=== PATIENT | female | born 1960 | race Two or more races ===

== ENCOUNTER 2021-08-17 23:48 | Emergency (ER) | payer OTHER ==
[~2021-08-17] VITALS: Ht 170.2 cm; Wt 77.6 kg
[2021-08-18] MEDS ORDERED: HYDROMORPHONE 1 MG/1 ML DISP.SYRIN ONE (00:19)
[2021-08-18] MEDS ORDERED: HYDROMORPHONE 1 MG/1 ML DISP.SYRIN IM ONE (00:30)
--- NOTE | 2021-08-18 01:24 | NUR ---
PT RETURNED TO ER BED [address] VIA ANA LILIA
--- NOTE | 2021-08-18 02:15 | NUR ---
L HAND #20G S/L; PATENT AND INTACT.
--- NOTE | 2021-08-18 02:32 | NUR ---
TOY STUFFER AT PT'S BEDSIDE
--- NOTE | 2021-08-18 02:42 | NUR ---
COVID SWAB DONE
[2021-08-18 02:45] LABS: BASOPHILS # (AUTO) 0.1 K/uL (0.0-0.2); BASOPHILS % (AUTO) 0.6 % (0.0-2.0); EOSINOPHILS % (AUTO) 1.8 % (0.0-6.0); HEMATOCRIT 42 % (33-45); HEMOGLOBIN 13.6 g/dL (11.5-14.8); LYMPHOCYTES # (AUTO) 2.7 K/uL (0.8-4.8); LYMPHOCYTES % (AUTO) 21.2 % (20.0-44.0); MEAN CORPUSCULAR HGB CONC 33 g/dl (31.0-36.0); MEAN CORPUSCULAR VOLUME 97 fL (82-100); MONOCYTES # (AUTO) 1.1 K/uL (0.1-1.30); MONOCYTES % (AUTO) 8.5 % (2.0-12.0); NEUTROPHILS # (AUTO) 8.8 K/uL (1.8-8.9); NEUTROPHILS % (AUTO) 67.9 % (43.0-81.0); PLATELET COUNT (AUTO) 243 K/uL (150-450)
--- NOTE | 2021-08-18 02:51 | NUR ---
WHEN LABS RESULT, PAGE VALENTIN SCRUGGS AT [phone]
[2021-08-18 03:06] LABS: CALCIUM, SERUM 9.1 mg/dL (8.5-10.1); CREATININE 0.7 mg/dL (0.6-1.3)
--- NOTE | 2021-08-18 03:12 | NUR ---
ANYI LAWRENCE ON PHONE CALL WITH VALENTIN SCRUGGS
[2021-08-18] MEDS ORDERED: MORPHINE SULFATE INJ 4 MG/ML DISP.SYRIN ONE (05:00)
[2021-08-18] MEDS ORDERED: MORPHINE SULFATE INJ 2 MG/ML DISP.SYRIN IV ONE (05:00)
--- NOTE | 2021-08-18 06:57 | NUR ---
ACCEPTED AT [facility] PER ER MD AMIN, AWATING TRANSFER INFO
--- NOTE | 2021-08-18 08:05 | NUR ---
RECEIVED A CALL FROM ALYSSA [facility] [employer] [phone]. SHE SAID THEY HAVE TO CANCEL THE TRANSFER BECAUSE THE ACCEPTING DOCTOR IN [facility] SPOKE WITH THE NEUROSURGEON AND PER THE NEUROSURGEON HE CAN'T ACCEPT THE PATIENT BECAUSE HE NEEDS A TRAUMA ORTHO SPINE SURGEON INSTEAD. MDs AWARE
--- NOTE | 2021-08-18 08:09 | NUR ---
[facility] [phone] ALLEN SPEAKING WITH DR. BILLS DECLINED TRANSFER. NOT A CRITERIA FOR TRAUMA.
--- NOTE | 2021-08-18 08:20 | NUR ---
[facility] TRANSF[facility] [phone] PER ELIZABETH.
--- NOTE | 2021-08-18 08:25 | NUR ---
[facility] [phone]. DR. DICKERSON WILL CALL US BACK FOR A PEER 2 PEER.
--- NOTE | 2021-08-18 08:37 | NUR ---
CALLED [facility] [phone] CHIARA WILL PRESENT TO TRAUMA FAXING CLINICALS TO [phone]
--- NOTE | 2021-08-18 08:58 | NUR ---
PATIENT ACCEPTED AT [facility] ACCEPTING: DR MARQUEZ # FOR REPORT: [phone]
--- NOTE | 2021-08-18 09:07 | NUR ---
[facility] ETA 45 MINS PER RENE
--- NOTE | 2021-08-18 09:14 | NUR ---
REPORT GIVEN TO KAITLYN AGUILA OF [facility] ER
[2021-08-18 09:59] VITALS: BP 116/71
--- NOTE | 2021-08-18 10:10 | NUR ---
PATIENT PICKED [facility] BY [facility] [address] IN STABLE CONDITION. PATIENT WILL BE TRANSFERRED TO [facility] ER. ALL PAPERWORK AND IMAGE CD GIVEN TO EMT.
== END 2021-08-18 10:24 | disposition short-term general hospital (02) ==
LOC: ER 23:55
DX: S32.019A Unspecified fracture of first lumbar vertebra, initial encounter for closed fracture (principal); W18.39XA Other fall on same level, initial encounter; Y92.039 Unspecified place in apartment as the place of occurrence of the external cause; Z20.822 Contact with and (suspected) exposure to COVID-19
CPT/HCPCS: 36415; 72131; 80048; 85025; 85730; 87426; 96372; 96374; 99285; C9803; J1170; J2270